=== PATIENT | female | born 1960 | race American Indian/Alaskan Native ===

== ENCOUNTER 2021-12-05 16:40 | Emergency (ER) | payer MEDICARE ==
--- NOTE | 2021-12-05 16:56 | Emergency Department Report ---
Stated Complaint: SHORT OF BREATH - HPI History of Present Illness: few day history of worsening sob and BLE swelling. - ROS Review of Systems: sob and BLE swelling. denies cp, n/v. - Exam Physical Exam: BLE swelling. alert and oriented. MSE screening note: Focused history and physical exam performed. Due to findings the following was ordered: cbc, cmp, bnp, ekg, cxr, troponin. patient to be seen by provider in ed when she gets a bed in the back. ED Disposition for MSE Condition: Stable
--- NOTE | 2021-12-05 17:52 | XRay Report ---
XR chest routine 2V INDICATION / CLINICAL INFORMATION: sob, ble swelling. COMPARISON: None available. FINDINGS: SUPPORT DEVICES: None. HEART /PULMONARY VASCULATURE: No significant abnormality. LUNGS / PLEURA: No significant pulmonary or pleural abnormality. No pneumothorax. ADDITIONAL FINDINGS: No significant additional findings. IMPRESSION: 1. No acute findings. Signer Name: Terry Bañuelos MD Signed: 12/05/2021 5:47 PM Workstation Name: [id number]
[2021-12-05 20:13] LABS: Hemoglobin 10.4 gm/dl (10.1-14.3); Red Cell Distribution Width 19.7 % (13.2-15.2)
[2021-12-05 20:20] LABS: Hematocrit 34.2 % (30.3-42.9); Mean Corpuscular HGB Conc 30 % (30-34); Mean Corpuscular Volume 82 fl (79-97); Platelet Count 438 K/mm3 (140-440); Red Blood Count 4.16 M/mm3 (3.65-5.03)
[2021-12-05 20:38] LABS: Alanine Aminotransferase 24 units/L (7-56); Albumin 4.1 g/dL (3.9-5); Blood Urea Nitrogen 6 mg/dL (7-17); Calcium 9.2 mg/dL (8.4-10.2); Hemolysis Index 0
[2021-12-05 20:40] LABS: BUN/Creatinine Ratio 10
[2021-12-05 20:49] LABS: HDL Cholesterol 97 mg/dL (40-59); LDL Cholesterol,Direct 56 mg/dL (50-130)
[2021-12-06] MEDS ORDERED: LISINOPRIL 20 MG TAB PO ONE (02:52)
[2021-12-06] MEDS ORDERED: hydrALAZINE 25 MG TAB PO ONE (06:02)
[2021-12-06] MEDS ORDERED: FUROSEMIDE 20 MG TAB PO ONE ×2 (06:03→16:37)
[2021-12-06] MEDS ORDERED: ASPIRIN 81 MG TAB CHEW PO ONE (06:03)
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
[2021-12-06 17:10] VITALS: BP 122/87
--- NOTE | 2021-12-07 08:52 | Electrocardiograph Report ---
[facility] Test Date: 2021-12-05 Test Time: 17:01:47 Pat Name: STEPHEN HAMLIN Department: Room: Gender: F Improvement Intern: ROSITA : 1960 Requested By: ARGELIA MIN Order Number: [id number] Reading MD: Nestor Gupta Measurements Intervals [place] Rate: 85 P: 67 [place]: 147 QRS: 4 QRSD: 78 T: 64 QT: 404 QTc: 480 Interpretive Statements Sinus rhythm Probable left atrial enlargement Probable left ventricular hypertrophy non-specific st-t anterior leads No previous ECG available for comparison Electronically Signed On 12-07-2021 8:52:14 EDT by Nestor Gupta
== END 2021-12-06 17:10 | disposition home or self-care (01) ==
LOC: ED 16:40
DX: R77.8 Other specified abnormalities of plasma proteins (principal); I11.0 Hypertensive heart disease with heart failure; I50.9 Heart failure, unspecified; Z79.899 Other long term (current) drug therapy
CPT/HCPCS: 36415; 71046; 80053; 80061; 83880; 84484; 85027; 93005; 99284